=== PATIENT | male | born 1945 | race Caucasian/White ===

== ENCOUNTER → 2016-06-04 | Outpatient (REF) | payer MEDICARE, OTHER ==
[~2016-06-04] MED LIST: CYCL10TA PO; HYDR-3719 PO; HYDR25TAB PO; LISI-538 PO; LISI10TA4 PO; PACE400T PO; PROC30TA PO; PROP10TA56 PO; SIMV40TA2 PO; XARE10TA PO
== END | disposition home or self-care (01) ==
LOC: M LAB REF 12:49
PROVIDERS: ATTEND Internal Medicine Medical Oncology
DX: C61 Malignant neoplasm of prostate (principal)

== ENCOUNTER 2016-07-18 20:33 | Emergency (ER) | payer MEDICARE, BC, OTHER ==
[~2016-07-18] VITALS: Ht 170.2 cm; Wt 85.3 kg
[2016-07-18] MEDS ORDERED: ASPIRIN 81 MG CHEW TABLET PO ONE (21:30)
[2016-07-18 21:42] LABS: BASO # 0.1 K/mm3 (0.0-0.2); BASO % 1.1 % (0.0-1.0); EOS # 0.1 K/mm3 (0.0-0.50); EOS % 1.7 % (0.0-3.0); LARGE UNSTAINED CELL # 0.2 K/mm3 (0.0-0.4); LARGE UNSTAINED CELL % 2.6 % (0.0-4.0); LYMPH # 1.3 K/mm3 (1.5-4.5); LYMPH % 17.8 % (24.0-44.0); MEAN CORPUSCULAR HGB CONC 31.9 g/dl (32.0-36.5); MEAN CORPUSCULAR VOLUME 103.5 fl (80.0-96.0); MONO # 0.4 K/mm3 (0.0-0.8); NEUTROPHILS # 4.3 K/mm3 (1.8-7.7); NEUTROPHILS % 70.8 % (36.0-66.0); PLATELET COUNT, AUTOMATED 262 k/mm3 (150-450); RED CELL DISTRIBUTION WIDTH 17.8 % (11.5-14.5); WHITE BLOOD COUNT 6.1 K/mm3 (4.0-10.0)
[2016-07-18 21:46] LABS: INR 1.57
[2016-07-18 21:59] LABS: ANION GAP 11 MEQ/L (8-16); BLOOD UREA NITROGEN 35 MG/DL (7-18); CALCIUM LEVEL 6.9 MG/DL (8.8-10.2); CARBON DIOXIDE LEVEL 24 MEQ/L (21-32); CHLORIDE LEVEL 110 MEQ/L (98-107); CREATININE FOR GFR 1.11 MG/DL (0.70-1.30); GLOMERULAR FILTRATION RATE > 60.0 (>49); GLUCOSE, FASTING 129 MG/DL (80-110); POTASSIUM SERUM 4.1 MEQ/L (3.5-5.1); SODIUM LEVEL 145 MEQ/L (136-145)
[2016-07-19] MEDS ORDERED: ISOVUE-370 76% 100ML VIAL (Q9967) As Ordered ONE (01:39)
--- NOTE | 2016-07-19 02:20 | REPUSA ---
CLINICAL HISTORY: Pain, exclude PE. TECHNIQUE: Multiple incremental axial, coronal and oblique images are obtained from the thoracic inle t to the upper abdomen. Intravenous contrast material was administered as per pulmonary embolism prot ocol. COMMENTS: There is excellent opacification of pulmonary arterial system without evidence for pulmonary embolism . Aorta is of normal caliber without evidence for dissection or aneurysm. Severe upper lobe predominant centrilobular emphysema is seen. 5 mm nodule is noted in the right lower lobe. There is no evidence of pleural or parenchymal mass. There are no pleural effusions. There is no evid ence of hilar or mediastinal lymphadenopathy. The heart and great vessels are within normal limits. Images of the upper abdomen demonstrate no evidence of adrenal mass. Status post cholecystectomy. The bony structures are free of lytic or blastic lesions. Multilevel degenerative changes are seen in volving the visualized thoracolumbar spine. Scattered calcifications are seen involving the aorta and major branches compatible with atherosclero sis. IMPRESSION: No evidence for pulmonary embolism. Severe upper lobe predominant centrilobular emphysema is seen. 5 mm nodule is noted in the right lower lobe. Follow-up with chest CT in 6 months is recommended. Thank you for your kind referral of this patient.
[2016-07-19] MEDS ORDERED: KETO10TAB PO (03:22)
[2016-07-19] MEDS ORDERED: KETOROLAC 30 MG/ML VIAL (J1885) IV ONE (03:30)
[2016-07-19 04:06] VITALS: BP 149/70
--- NOTE | 2016-07-19 09:07 | REP ---
Portable chest x-ray: Sitting AP view. History: Chest pain. Comparison study January 01, 2016. Findings: EKG monitoring electrodes overlie the chest. The heart is not enlarged. The lungs are well inflated and clear. There is no evidence of infiltrate. Pleural angles are sharp. The bony thorax appears diffusely more radio-opaque. 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 Impression: No active cardiopulmonary disease. Widespread blastic metastatic changes throughout the skeleton. Signed by Geovanni Gonzalez MD 07/19/2016 09:39 A
--- NOTE | 2016-07-19 19:55 | ECGEPIP ---
Stationary ECG Study [facility] - ED Test Date: 2016-07-18 Pat Name: ANN-MARIE KUNZ Department: Room: - Gender: M Pain Management Physician: eugenio : 1945 Requested By: JAM MORRIS Order Number: [id number] Reading MD: Liliane Loomis Measurements Intervals [place] Rate: 66 P: 32 MT: 157 QRS: -45 QRSD: 149 T: 35 QT: 445 QTc: 469 Interpretive Statements SINUS RHYTHM MARKED LEFT AXIS DEVIATION INTRAVENTRICULAR CONDUCTION DELAY PRIOR ATRIAL FLUTTER 01/01/16 Electronically Signed On 07-19-2016 19:55:11 EDT by Liliane oLomis
--- NOTE | 2016-07-19 19:57 | ECGEPIP ---
Stationary ECG Study [facility] - ED Test Date: 2016-07-19 Pat Name: ANN-MARIE KUNZ Department: Room: - Gender: M Medical Records Tech: rylan : 1945 Requested By: JAM MORRIS Order Number: [id number] Reading MD: Liliane Loomis Measurements Intervals [place] Rate: 69 P: 30 ME: 154 QRS: -45 QRSD: 140 T: 47 QT: 343 QTc: 370 Interpretive Statements SINUS RHYTHM MARKED LEFT AXIS DEVIATION INTRAVENTRICULAR CONDUCTION DELAY SIMILAR 07/18/16 21:06 Electronically Signed On 07-19-2016 19:57:30 EDT by Liliane Loomis
--- NOTE | 2016-07-21 20:58 | ED PDOC ---
Post-Departure Follow-Up daly sparrow faxed formal report of cxr for fu Christy Malik MD Jul 21, 2016 20:58
--- NOTE | 2016-07-21 21:06 | ED PDOC ---
Post-Departure Follow-Up daly emanual faxed formal report of cta for fu Christy Cook MD Jul 21, 2016 21:06
== END 2016-07-19 04:08 | disposition home or self-care (01) ==
LOC: M ED 21:28
DX: R07.89 Other chest pain (principal)
CPT/HCPCS: 71010; 71275; 80048; 82550; 82553; 84484; 85025; 85610; 85730; 93005; 93041; 94760; 96374; 99285; J1885; Q9967

== ENCOUNTER → 2016-08-08 | Outpatient (CLI) | payer MEDICARE, BC, OTHER ==
[~2016-08-08] MED LIST changes: +KETO10TAB PO
--- NOTE | 2016-08-08 14:32 | REP ---
MR LUMBAR SPINE WITHOUT AND WITH CONTRAST: HISTORY: Prostate carcinoma. CONTRAST: ProHance 15 mL. COMPARISON: 07/21/2005. Decreased signal intensity on T2-weighted is present in the lumbar intervertebral discs. The discs are decrease in height. These findings are consistent with disc degeneration. There is no disc bulge or herniation at the L1-2 level. The L1 nerves exit the neural foramina without compression. A diffuse disc bulge is present at the L2-3 level. There is minimal compression of the thecal sac. The L2 nerves exit the neural foramina without compression. A diffuse disc bulge asymmetric to the left is present at the L3-4 level. There is minimal compression of the thecal sac. There is compression of the left L3 nerve in the neural foramen. The right L3 nerve exits the neural foramen without compression. A diffuse disc bulge is present at the L4-5 level. There is hypertrophy of the ligamenta flava and posterior articulating facets. These findings produce mild central canal stenosis. There is compression of the right L4 nerve in the neural foramen. The left L4 nerve exits the neural foramen without compression. Fluid is present in the L4-5 facet joints. A diffuse disc bulge is present at the L5-S1 level. There is minimal compression of the thecal sac. There is hypertrophy of the posterior articulating facets. There is compression of the L5 nerves in the neural foramina. The conus medullaris is normal in appearance terminating at the level of the T12-L1 intervertebral disc. Diffuse decreased signal intensity on T1 weighted images is present in the T12 and lumbar vertebral bodies, iliac bones and sacrum consistent with metastases. There is minimal heterogeneous enhancement with contrast. There is paravertebral and intraforaminal extension on the left at the L5-S1 level. A 2.6 cm cyst is present in the right kidney. IMPRESSION: 1. Diffuse disc bugles at the L2-3 and L3-4 levels with minimal thecal sac compression. There is compression of the left L3 nerve in the neural foramen. The left L3 nerve compression is a new finding. 2. Mild central canal stenosis at the L4-5 level secondary to disc bulge, ligamentous, and facet hypertrophy. There is compression of the right L4 nerve in the neural foramen. The canal stenosis and right L4 nerve compression are new findings. 3. Diffuse disc bulge at the L5-S1 level with minimal thecal sac compression. There is compression of the L5 nerves in the neural foramina. 4. There is diffuse decreased signal intensity in the visualized bony structure consistent with metastases. Signed by Jagdish Newby MD 08/08/2016 02:35 P
== END ==
LOC: M RAD 10:35
PROVIDERS: ATTEND Internal Medicine Medical Oncology
DX: C61 Malignant neoplasm of prostate (principal); M51.06 Intervertebral disc disorders with myelopathy, lumbar region; M99.73 Connective tissue and disc stenosis of intervertebral foramina of lumbar region; M51.17 Intervertebral disc disorders with radiculopathy, lumbosacral region
CPT/HCPCS: 72158; A9576